=== PATIENT | male | born 1985 | race Caucasian/White ===

== ENCOUNTER 2020-11-16 09:20 | Outpatient (REF) | payer OTHER, SELFPAY | END 2020-11-16 09:21 | disposition home or self-care (01) | LOC: HO.LAB 09:20 | PROVIDERS: Visit Provider Internal Medicine | DX: Z20.822 Contact with and (suspected) exposure to COVID-19 (principal) | CPT/HCPCS: 36415; C9803; U0003; U0005 ==

== ENCOUNTER 2020-12-05 14:14 | Outpatient (REF) | payer OTHER, SELFPAY | END 2020-12-05 14:15 | disposition home or self-care (01) | LOC: HO.LAB 14:14 | PROVIDERS: Visit Provider Internal Medicine | DX: Z20.822 Contact with and (suspected) exposure to COVID-19 (principal) | CPT/HCPCS: 36415; C9803; U0003; U0005 ==

== ENCOUNTER 2023-11-22 08:36 | Outpatient (REF) | payer MEDICAID, SELFPAY ==
[2023-11-22 11:42] LABS: Hematocrit 47.8 % (42.0-52.0); Hemoglobin 16.3 g/dl (14.0-18.0); Mean Corpuscular HGB Conc 34.1 g/dl (31.0-36.0); Mean Corpuscular Hemoglobin 29.9 pg (27.0-33.0); Mean Corpuscular Volume 87.7 fL (80.0-98.0); Mean Platelet Volume 12.2 fL (9.4-12.4); Platelet Count 233 X10*3/uL (160-400); Red Blood Count 5.45 X10*6/uL (4.60-5.80); Red Cell Distribution Width 12.9 % (11.0-16.0); White Blood Count 6.9 X10*3/uL (4.8-10.8)
[2023-11-22 12:02] LABS: Alanine Aminotransferase 44 U/L (0-40); Albumin Level 4.4 g/dL (3.5-5.0); Alkaline Phosphatase 134 U/L (39-117); Anion Gap 12 (12-20); Aspartate Amino Transferase 20 U/L (5-37); Bilirubin Total 0.6 mg/dL (0.0-1.0); Blood Urea Nitrogen 13 mg/dL (9-16); Calcium 9.5 mg/dL (8.4-10.2); Carbon Dioxide 28 mmol/L (22-29); Chloride 102 mmol/L (96-108); Estimated Glomerular Filt Rate > 60; Glucose Random 329 mg/dL (60-115); Potassium 4.3 mmol/L (3.3-5.1); Sodium 138 mmol/L (135-145); Total Protein 7.8 g/dL (6.5-8.0)
[2023-11-22 12:11] LABS: HBsAGNum1 0.46 S/CO (0.00-0.99); HIV AB/AG Nonreactive (Nonreactive); HIV Num 1 0.05 S/CO (0.00-0.99); Hepatitis B Surface Antigen Negative (Negative); ~HepC Num1 0.11 S/CO (0.00-0.79); ~Hepatitis C Antibody Nonreactive (Nonreactive)
== END 2023-11-22 08:37 | disposition home or self-care (01) ==
LOC: HO.HHCL 08:36
PROVIDERS: Visit Provider Student in an Organized Health Care Education/Training Program
DX: E11.9 Type 2 diabetes mellitus without complications (principal)
CPT/HCPCS: 36415; 80053; 85027; 86803; 87340; 87389

== ENCOUNTER 2024-01-20 12:45 | Outpatient (REF) | payer OTHER, SELFPAY ==
[2024-01-20 17:11] LABS: Cholesterol 129 mg/dL (<200); HDL Cholesterol 29 mg/dL (>40); LDL Cholesterol Calculated 78 mg/dL (<100); Triglycerides 113 mg/dL (<150)
[2024-01-20 17:35] LABS: Creatinine Urine 162.78 mg/dL
== END 2024-01-20 12:46 | disposition home or self-care (01) ==
LOC: HO.HHCL 12:45
PROVIDERS: Visit Provider Nurse Practitioner Family
DX: E11.9 Type 2 diabetes mellitus without complications (principal)
CPT/HCPCS: 36415; 80061; 82043; 82570

== ENCOUNTER 2025-05-28 14:38 | Emergency (ER) | payer MEDICAID, SELFPAY ==
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
[2025-05-28 14:42] VITALS: BP 144/67; PULSE 110; RESP 20; TEMP 36.8; O2SAT 95; BMI 29.7
[2025-05-28 15:14] LABS: MANUAL DIFF FLAG NO
[2025-05-28 15:16] LABS: Hematocrit 41.3 % (42.0-52.0); Hemoglobin 14.8 g/dl (14.0-18.0); Imm Gran Abs Auto 0.05 X10*3/uL (0.00-0.03); Imm Gran Pct Auto 0.4 % (0.0-0.4); Lymphocytes Absolute Auto 1.5 X10*3/uL (1.2-4.9); Mean Corpuscular HGB Conc 35.8 g/dl (31.0-36.0); Mean Corpuscular Hemoglobin 30.5 pg (27.0-33.0); Mean Corpuscular Volume 85.0 fL (80.0-98.0); NRBC Abs Auto 0.000 X10*3/uL (0.0-0.012); NRBC Pct Auto 0.0 /100WBC (0.0-0.2); Platelet Count 203 X10*3/uL (160-400); Red Blood Count 4.86 X10*6/uL (4.60-5.80); White Blood Count 11.8 X10*3/uL (4.8-10.8)
--- OUTSIDE RECORDS SUMMARY | 2025-05-28 15:29 | XMS_ITS | Encounter Summary ---
Author Organization [employer] Address [address] [facility] [address] [place] [address] Care Team Providers Care Assistant Manager Retail Name Role Phone Jennifer Ugalde [employer] Primary Care Provider [phone] Leena Donis PharmD Unavailable [phone] Reason for Visit * Reason Onset Date Comments Med Refill 11/25/2024 Encounter Details Date Type Department Care Team ([facility] st Contact Info) Description 11/25/2024 Refill [facility] [address] [place] [address] Jennifer Ugalde NP [address] [place] [address] Type 2 diabetes mellitus without complication, without long-term current use of insulin ([facility]); Type 2 diabetes mellitus with hyperglycemia, without long-term current use of insulin ([facility]) Social History Tobacco Use Types Packs/Day Years Used Date Smoking Tobacco: Never Passive Smoke Exposure: Never Smokeless Tobacco: Never Comments:Smokes vapes Alcohol Use Standard Drinks/Week Comments Never 0 (1 standard drink = 0.6 oz pur e alcohol) Alcohol Answer Date Recorded Frequency of Alcohol Consumption Not on file 05/04/2024 Average Number of Drinks Not on file 024 Frequency of Binge Drinking Not on file 04/23 Score 0 05/04/2024 Depression Answer Date Recorded Patient Health Questionnaire-9 Score 14 09/07/2024 Patient Health Questionnaire-9 Score 14 09/07/2024 Last PHQ-9: Questionnaire Data Not on file 1 11/08/2023 Housing Stability Answer Date Recorded What is your housing situation today? I have housing today, but I am worried about losing housing in the future 09/18/[address] you li ve. Do you have problems with any of the following? None of the above 09/18/2024 Food Insecurity Answer Date Recorded Within the past 12 months, y ou worried that your food would run out before you got money to buy more: Never True 09/18/2024 Within the past 12 months,th e food you bought just didn't last and you didn't have enough money to get more: Never True Transportation Answer Date Recorded In the past 12 months, has l ack of transportation kept you from medical appts, meetings, work or from getting things needed for daily living? Yes, it has kept me from medical appointments or getting medications. 09/18/2024 Utilities Answer Date Recorded In the past 12 months, has t he electric, gas, oil or water company threatened to shut off services in your home? No 11/13/2023 Depression Answer Date Recorded Patient Health Questionnaire-2 Score 4 09/07/2024 Internet Access Answer Date Recorded Internet Access Q1 Yes 09/18/2024 Internet Access Q2 Not on file 09/18/2024 Sex and Gender Information Value Date Recorded Sex Assigned at Male 07/23/2022 10:29 AM EDT Legal Sex Male 10:29 AM EDT Gender Identity Male 10/11/2023 10:00 AM EST Sexual Orientation Straight 10/11/2023 10 :00 AM EST documented as of this encounter Plan of Treatment Upcoming Encounters Date Type Department Care Team (Late st Contact Info) Description 05/31/2025 2:30 PM EDT Medication Management [facility] [address] [place] [address] Leena Donis, PharmD [address] [place] [address] documented as of this encounter Visit Diagnoses Diagnosis Type 2 diabetes mellitus without complication, without long-term current use of insulin (CMS/HCC) Type 2 diabetes mellitus with hyperglycemia, without long-term current use of insulin (CMS/HCC) documented in this encounter Additional Health Concerns Assessment Noted Time PHQ-9 Depression Total Score: 14 024 4:51 PM EST documented as of this encounter Care Teams Assistant Manager Retail Relationship Specialty Start Date End Date Jennifer Ugalde NP [address] [place] [address] PCP - General Family Medicine 11/25/23 Leena Donis PharmD [address] [place] [address] Pharmacist Internal Medicine 11/17/24 Lisa Davila Secondary TeacherTiming Adjuster 12/31/24 documented as of this encounter
--- OUTSIDE RECORDS SUMMARY | 2025-05-28 15:29 | XMS_ITS | Encounter Summary ---
Author Organization [employer] Address [address] [facility] 7t [place] [address] Care Team Providers Care Leveler Helper Name Role Phone Jennifer Ugalde CATHETERIZATION LABORATORY TECHNICIAN Primary Care Provider [phone] Leena Donis PharmD Unavailable [phone] Reason for Visit * Reason Onset Date Comments Med Refill 12/23/2024 Encounter Details Date Type Department Care Team ([facility] st Contact Info) Description 12/23/2024 Refill [facility] [address] [place] [address] Jennifer Ugalde NP [address] [place] [address] Controlled type 2 diabetes mellitus with hyperglycemia, with long-term current use of insulin ([facility]) Social History Tobacco Use Types Packs/Day Years [...] Description 05/31/2025 2:30 PM EDT Medication Management [facility] [address] [place] [address] Leena Donis, ErikD [address] [place] [address] documented as of this encounter Visit Diagnoses Diagnosis Controlled type 2 diabetes mellitus with hyperglycemia, with long-term current use of insulin ([facility]) documented in this encounter Additional Health Concerns Assessment Noted Time PHQ-9 Depression Total Score: 14 024 4:51 PM EST documented as of this encounter Care Teams Leveler Helper Relationship Specialty Start Date End Date Jennifer Ugalde NP [address] [place] [address] PCP - General Family Medicine 3/4/24 Leena Donis, Johnson [address] [place] [phone] Pharmacist Internal Medicine 11/17/24 Lisa Davila Professor Of GeographyForepart Laster 12/31/24 documented as of this encounter
--- OUTSIDE RECORDS SUMMARY | 2025-05-28 15:29 | XMS_ITS | Encounter Summary ---
Author Organization [employer] Address [address] [facility] 7t [place] [address] Care Team Providers Care Tip Banding Machine Operator Name Role Phone Jennifer Ugalde PHARMACY CARE COORDINATOR Primary Care Provider [phone] Leena Donis PharmD Unavailable [phone] Reason for Visit * Reason Onset Date Comments Med Refill 12/22/2024 Encounter Details Date Type Department Care Team ([facility] st Contact Info) Description 12/22/2024 Refill [facility] [address] [place] [address] Jennifer Ugalde NP [address] [place] [address] Type 2 diabetes mellitus with hyperglycemia, without long-term current use of insulin ([facility]) Social History Tobacco Use Types Packs/Day Years [...] Description 05/31/2025 2:30 PM EDT Medication Management [facility] [address] [place] [address] Leena Donis PharmD [address] [place] [address] documented as of this encounter Visit Diagnoses Diagnosis Type 2 diabetes mellitus with hyperglycemia, without long-term current use of insulin ([facility]) documented in this encounter Additional Health Concerns Assessment Noted Time PHQ-9 Depression Total Score: 14 024 4:51 PM EST documented as of this encounter Care Teams Tip Banding Machine Operator Relationship Specialty Start Date End Date Jennifer Ugalde NP [address] [place] [address] PCP - General Family Medicine 11/25/23 Leena Donis, ErikD [address] [place] [phone] Pharmacist Internal Medicine 11/17/24 Lisa Davila Forming Tube SelectorIsolation Washer 12/31/24 documented as of this encounter
--- OUTSIDE RECORDS SUMMARY | 2025-05-28 15:29 | XMS_ITS | Encounter Summary ---
Author Organization [employer] Address [address] [facility] [address]t [place] [address] Care Team Providers Care Solution Spec Name Role Phone Jennifer Ugalde HEAD BAKER Primary Care Provider [phone] Leena Donis PharmD Unavailable [phone] Reason for Visit * Reason Onset Date Comments Med Refill 01/19/2025 Encounter Details Date Type Department Care Team ([facility] st Contact Info) Description 01/19/2025 Refill [facility] [address] [place] [address] Jennifer Ugalde NP [address] [place] [address] Controlled type 2 diabetes mellitus with hyperglycemia, with long-term current use of insulin ([facility]) Social History Tobacco Use Types Packs/Day Years [...] Description 05/31/2025 2:30 PM EDT Medication Management [facility] [address] [place] [address] Leena Donis, ErikD [address] [place] [address] documented as of this encounter Visit Diagnoses Diagnosis Controlled type 2 diabetes mellitus with hyperglycemia, with long-term current use of insulin ([facility]) documented in this encounter Additional Health Concerns Assessment Noted Time PHQ-9 Depression Total Score: 14 024 4:51 PM EST documented as of this encounter Care Teams Solution Spec Relationship Specialty Start Date End Date Jennifer Ugalde NP [address] [place] [address] PCP - General Family Medicine 3/4/24 Leena Donis, Johnson [address] [place] [phone] Pharmacist Internal Medicine 11/17/24 Lisa Davila Volunteer AssistantManager Aerospace 12/31/24 documented as of this encounter
--- OUTSIDE RECORDS SUMMARY | 2025-05-28 15:29 | XMS_ITS | Encounter Summary ---
Author Organization [employer] Address [address] [facility] [address] [place] [address] Care Team Providers Care Pocket Machine Operator Name Role Phone Jennifer Ugalde ELECTRICIAN SECOND Primary Care Provider [phone] Leena Donis PharmD Unavailable [phone] Reason for Visit * Reason Onset Date Comments Med Refill 12/24/2024 Encounter Details Date Type Department Care Team ([facility] st Contact Info) Description 12/24/2024 Refill [facility] [address] [place] [address] Jennifer Ugalde NP [address] [place] [address] Viral upper respiratory tract infection Social History Tobacco Use Types Packs/Day Years [...] Description 05/31/2025 2:30 PM EDT Medication Management [facility] [address] [place] [address] Leena Donis PharmD [address] [place] [address] documented as of this encounter Visit Diagnoses Diagnosis Viral upper respiratory tract infection Acute upper respiratory infections of unspecified site documented in this encounter Additional Health Concerns Assessment Noted Time PHQ-9 Depression Total Score: 14 024 4:51 PM EST documented as of this encounter Care Teams Pocket Machine Operator Relationship Specialty Start Date End Date Jennifer Ugalde NP [address] [place] [address] PCP - General Family Medicine 11/25/23 Leena Donis PharmD [address] [place] [phone] Pharmacist Internal Medicine 11/17/24 Lisa Davila Stack ClerkRn Rehab 12/31/24 documented as of this encounter
--- OUTSIDE RECORDS SUMMARY | 2025-05-28 15:29 | XMS_ITS | Encounter Summary ---
Author Organization [employer] Address [address] [facility] 7t [place] [address] Care Team Providers Care Aviation Support Equipment Repairer Name Role Phone Jennifer Ugalde HEALTH INSURANCE SPECIALIST Primary Care Provider Leena Donis PharmD Unavailable [phone] Reason for Visit * Reason Onset Date Comments Med Refill 03/01/2025 Encounter Details Date Type Department Care Team ([facility] st Contact Info) Description 03/01/2025 Refill [facility] [address] [place] [address] Jennifer Ugalde NP [address] [place] [address] Type 2 diabetes mellitus with hyperglycemia, with long-term current use of insulin ([facility]) Social History Tobacco Use Types [...] Description 05/31/2025 2:30 PM EDT Medication Management [facility] [address] [place] [address] Leena Donis PharmD [address] [place] [address] documented as of this encounter Visit Diagnoses Diagnosis Type 2 diabetes mellitus with hyperglycemia, with long-term current use of insulin ([facility]) documented in this encounter Additional Health Concerns Assessment Noted Time PHQ-9 Depression Total Score: 14 024 4:51 PM EST documented as of this encounter Care Teams Aviation Support Equipment Repairer Relationship Specialty Start Date End Date Jennifer Ugalde NP [address] [place] [address] PCP - General Family Medicine 11/25/23 Leena Donis, ErikD [address] [place] [phone] Pharmacist Internal Medicine 11/17/24 Lisa Davila Footwear Production Machine OperatorHospice Superintendent 12/31/24 documented as of this encounter
--- OUTSIDE RECORDS SUMMARY | 2025-05-28 15:29 | XMS_ITS | Clinical Summary ---
Author Organization [employer] Address [address] [place] [address] 7[address] [place] [address] Care Team Providers Care Big Machine Consultant Name Role Phone AftabJennifer ZORAIDA Primary Care Provider [phone] Leena Donis PharmD Unavailable [phone] Allergies No known active allergies Medications * This document contains information received from the source organization and may not represent a complete record from that organization. albuterol 108 (90 Base) MCG/ACT inhaler Inhale 2 puffs every 6 (six) hours if needed for wheezing. 18 g 4 Active pen needle 31G x 8 mm miscIndications:T ype 2 diabetes mellitus with hyperglycemia, without long-term current use of insulin ([facility]) Use as instructed 100 each 12 4 09/08/20 25 Active glucose blood (FreeStyle Precision Vick Test) test stripIndications: Type 2 diabetes mellitus with hyperglycemia, with long-term current use of insulin ([facility]) Use to test blood sugar up to 3 times daily 100 each 5 10/01/19 26 Active Continuous Glucose Whistle Punk (FreeStyle Audelia 3 [place]) device USE DIRECTED TO TEST BLOOD SUGAR 5 Active triamcinolone (Kenalog) 0.1 % cream APPLY TOPICALLY TWICE DAILY IN THE MORNING AND AT BEDTIME NEEDED FOR UP TO 2 WEEKS. APPLY SPARINGLY TO nasal folds 30 g 5 Active ketoconazole (NIZOral) 2 % cream APPLY TOPICALLY TO THE AFFECTED AREA(S) ONCE DAILY 45 g 5 Active TRUEplus Lancets 33G miscIndications:T ype 2 diabetes mellitus with hyperglycemia ([facility]) USE DIRECTED TO CHECK BLOOD SUGAR THREE TIMES DAILY 100 each 3 5 Active ketoconazole (NIZOral) 2 % shampoo APPLY TOPICALLY 2 TIMES A WEEK 240 mL 1 5 Active albuterol (Ventolin HFA) 108 (90 Base) MCG/ACT inhalerIndication s:Viral upper respiratory tract infection INHALE 2 PUFFS BY MOUTH EVERY 6 HOURS NEEDED FOR WHEEZING OR SHORTNESS OF BREATH 18 g 2 5 Active Continuous Glucose Sensor (FreeStyle Audelia 3 Plus Sensor) miscIndications:T ype 2 diabetes mellitus with hyperglycemia, with long-term current use of insulin ([facility]) 1 each every 15 days. 2 each 11 5 Active insulin degludec (Tresiba FlexTouch) 100 UNIT/ML injectionIndicati ons:Controlled type 2 diabetes mellitus with hyperglycemia, with long-term current use of insulin ([facility]) Inject 36 Units under the skin at bedtime. 22.5 mL 5 5 Active Dulaglutide (Trulicity) 4.5 MG/0.5ML solution auto-injector Inject 4.5 mg under the skin 1 (one) time per week. 2 mL 11 5 Active empagliflozin-met FORMIN ER (Synjardy XR) 12.5-1000 MG 24 hr tablet Take 2 tablets by mouth before evening meal. 60 tablet 11 5 03/08/20 26 Active Active Problems Problem Noted Date Diagnosed Date Controlled type 2 diabetes m odette with hyperglycemia, with long-term current use of insulin 10/23/2024 Assessment & Plan (11/27/2024 12:02 PM EST): Pt is hyperglycemic, taking tresiba nightly, reports taking a break form trulicity, but restarted today at 3 mg No side effects Will not increase tresiba today despite hypergylcemia due to recent resumption of glp-1 will send note to nurses to outreach to pt in 2 weeks for glucose trends. Assessment & Plan (10/24/2024 12:23 PM EST): Pt with persistent hyperglycemia, given GI side effects from trulicity, will increase tresiba to 20 units nightly with RN call early next week for prn titration Continue cgm Low back pain at multiple sites 10/23/2024 Dietary counseling 09/22/2024 Assessment & Plan (10/24/2024 12:24 PM EST): Encouraged minimizing processed foods and increasing whole foods particularly vegetables Assessment & Plan (09/22/2024 4:25 PM EST): Encouraged minimizing processed foods and increasing whole foods particularly vegetables Exercise counseling 09/22/2024 Assessment & Plan (10/24/2024 12:23 PM EST): Encouraged daily movement, working up to 30 minutes daily Assessment & Plan (09/22/2024 4:25 PM EST): Encouraged daily movement, working up to 30 minutes daily Sciatica of right side 07/07/2024 Assessment & Plan (07/07/2024 5:46 PM EDT): Continue with physical therapy, Prn muscle relaxor for nocturnal symptoms If no improvement, will image and refer to physiatry Acute right-sided low back pain with right-sided sciatica 05/04/2024 Assessment & Plan (10/24/2024 12:23 PM EST): Pain persistens despite physical therapy, referral to physiatry Assessment & Plan (05/07/2024 5:39 PM EDT): Supportive measures reviewed, pt opts to pursue work up through employer Contusion of right great toe with damage to nail 05/04/2024 ADHD 01/16/2024 Body aches 01/16/2024 BPPV (benign paroxysmal positional vertigo) 12/23 Cholecystitis 01/16/2024 Elevated CK-MB level 01/16/2024 Insomnia 01/16/2024 Chronic elbow pain, left 01/16/2024 Assessment & Plan (07/07/2024 5:44 PM EDT): Referral to ortho Obesity (BMI 30.0-34.9) 01/16/2024 Subclinical hypothyroidism 01/16/2024 Seborrheic dermatitis 11/25/2023 Assessment & Plan (01/21/2024 5:55 PM EDT): Improved, pt would like to continue with current regimen Assessment & Plan (11/26/2023 5:20 PM EST): Impacting nasal folds, trial topical steroid and topical ketoconazole medication indication, side effects and usage reviewed, questions answered. Pt aware to call if side effects occur Discontinue steroid after two weeks. Seborrheic dermatitis of scalp 11/25/2023 Assessment & Plan (11/26/2023 5:20 PM EST): Trial ketoconazole shampoo twice weekly. medication indication, side effects and usage reviewed, questions answered. Pt aware to call if side effects occur Mild anxiety 10/17/2023 Assessment & Plan (10/17/2023 1:21 PM EST): PROGRESS NOTE: ID: is a 37 y.o. Other straight-identified cis-male (pronouns ) with previous documented hx of Depression self reported history of ADHD/ADD services including OP Psychotherapy psychopharmacology who presents for ADHD, Depression, and Anxiety. He lives alone, working at [employer]. Reported has his father here and cousins who he communicate but not often, currently has one brother alive but they don't speak. During [facility]BH Consult presenting with depressed mood, loss of interests/pleasure , changes in sleep difficulty falling asleep and sleeping too much, trouble concentrating, fatigue/loss of energy and restless/keyed up/On edge, easily fatigued, difficulty concentrating/Mind going blank , sleep disturbance difficulty falling asleep and sleeping too much, and fearfulness; for a period of 6-12 mo, for all symptoms in the context of lacking of social support, seeking someone to help him learn skills to manage his symptoms. PLAN: New/Additional Services needed Off-site services for Behavioral Health Integration Plan External OP therapy referral Patient Self Plan Patient to utilize skills provided in intervention and Patient to reach out to [facility] team as needed Asthma 10/13/2023 Assessment & Plan (10/13/2023 9:36 AM EST): Seems from description of symptoms pt present initially w viral syndrome possible complicated w bacterial infection and asthma exacerbation COVID and flu neg -amoxicillin x 7 days BID -refilled albuterol -guaifenesin BID -alarm signs and symptoms discussed -to do today chem,CBC,HIV and Hep B and C until can start care w new PCP -request new PCP apt today DM (diabetes mellitus) 10/13/2023 Assessment & Plan (09/22/2024 4:25 PM EST): Pt is taking and tolerating insulin Sugars remain elevated Increase tresiba to 13 units nightly Follow up in 2 weeks Assessment & Plan (09/17/2024 3:39 PM EST): Pt with significant personal stress contributing to lack of compliance with medicaitons, Pt was referred to case management asymptomatic hyperglycemia, urgency of glucose control reviewed Pt referred to cdtm Pt attributes elevated screen to living situation Assessment & Plan (07/07/2024 5:45 PM EDT): Above goal, increase trulicity to 1.5 mg, add glipizide with meals, will outreach this week to check in regarding glucose Referral to pharmacy for med management If no clinical improvement, consider late onset type I and referral to endocrine Assessment & Plan (05/16/2024 1:02 PM EDT): Pt offered nutrition and dne, Pt declines these but is willing to proceed with close folllow up Plans to pick up and delivery driver trulicity today Rtc in 1-2 weeks Once sugars are improved will review statin therapy as well as DEVAN/arb Assessment & Plan (05/07/2024 5:38 PM EDT): Pt was able to acquire medications, tolerating metformin and trulicity, Follow up in 4-6 week s Assessment & Plan (01/21/2024 5:56 PM EDT): Sugars are improving and patient plans to start trulicity, referral to nursing for continued diabetes management, declines DNE and nutrition today Follow up with provider within 3 months sooner prn Bp at goal but consider 2.5 mg of lisinopril for renoprotective properties at next visit Due for dm foot exam, pt denies neuropathy or lesions on feet Assessment & Plan (11/26/2023 5:21 PM EST): Hgb A1c 10.2 , pt does not have hx of pancreatitis, ckd, or thyroid cancer, Gradually increase metformin until at 1000 mg bid monitoring for GI side effects Then add trulicity weekly 0.75 mg medication indication, side effects and usage reviewed, questions answered. Pt aware to call if side effects occur Pt declines diabetes education referral Reviewed DIABETES MELLITUS management including, devan/arb and statin, pt declines devan/arb but willing to trial statin, Ordered Rtc in 1 month sooner prn Assessment & Plan (10/13/2023 9:33 AM EST): Urine dipstick Glu 500,ketone neg, blood trace,proteine 100, nitrates and LE neg Hb1AC 10.2, Gl 255 -resume metformin 500 mg BID-states used to be control on metformin before -will need to start care w new PCP to monitor DM, may need 2nd drug but will resume meds for now Depression 10/13/2023 Assessment & Plan (10/13/2023 9:35 AM EST): Reports to be stable ,denies SI -BH contacted today to call pt to start care -will need to start outpt tx -to see new PCP ideally within next 4 to 6 weeks Encounters Date Type Department Care Team Description 04/20/2025 Travel 04/02/2025 Telephone [facility] [address] [place] [address] Jennifer Ugalde NP Nurse Triage 03/31/2025 Refill [facility] [address] [place], [place] [phone] Jennifer Ugalde NP Type 2 diabetes mellitus with hyperglycemia, with long-term current use of insulin ([facility]) 03/26/2025 Refill [facility] [address] [place] [address] Jennifer Ugalde NP Type 2 diabetes mellitus with hyperglycemia, without long-term current use of insulin ([facility]); Viral upper respiratory tract infection 03/23/2025 Telephone [facility] [address] [place] [address] Martina Lew MA r/s appointment 03/08/2025 Travel 03/07/2025 Refill [facility] [address] [place] [address] Jennifer Ugalde NP Type 2 diabetes mellitus with hyperglycemia, with long-term current use of insulin ([facility]) 03/04/2025 Refill [facility] [address] [place], [place] [phone] Jennifer Ugalde NP Type 2 diabetes mellitus with hyperglycemia, with long-term current use of insulin ([facility]) 03/01/2025 Refill [facility] [address] [place], [place] [phone] Jennifer Ugalde NP Type 2 diabetes mellitus with hyperglycemia, with long-term current use of insulin ([facility]) from Last 3 Months Immunizations Immunization Administration Dates Next Due HepB-CpG 11/17/2024,10/15/2024 Influenza injectable quadrivalent preservative f ree 11/30/2016 Influenza, IIV3, injectable 11/04/2020, 7 Influenza, seasonal, injectable, preservative fr ee 10/01/2024 Pfizer Covid-19 Vaccine 12+ 10/01/2024 Pneumococcal Conjugate PCV 20 10/01/2024 Tdap 10/15/2024 Social History Tobacco Use Types Packs/Day Years Used Date Smoking Tobacco: Never Passive Smoke Exposure: Never Smokeless Tobacco: Never Tobacco Cessation:Counseling Given: Not Answered Comments:Smokes vapes Alcohol Use Standard Drinks/Week Comments [...] Orientation Straight 10/11/2023 10 :00 AM EST Last Filed Vital Signs Vital Sign Reading Time Taken Comments Blood Pressure 110/64 03/08/2025 12:55 PM EDT Pulse 77 03/08/2025 12:55 PM EDT Temperature 36.4 C (97.6 F) 11/27/2024 11:48 AM EST Respiratory Rate 20 11/27/2024 11:48 AM EST Oxygen Saturation 98% 11/27/2024 11:48 AM EST Inhaled Oxygen Concentration - - Weight 112 kg (246 lb 6.4 oz) 11/27/2024 11:48 A M EST Height 188 cm (6' 2 ) 11/27/2024 11:48 AM EST Body Mass Index 31.64 11/27/2024 11:48 AM EST Plan of Treatment Upcoming Encounters Date Type Department Care Team (Late st Contact Info) Description 05/31/2025 2:30 PM EDT Medication Management [facility] [address] [place] [address] Leena Donis, PharmD [address] [place] [address] Health Maintenance Due Date Last Done Comments Diabetes: Foot Exam 12/02/1995 Alcohol/Substance Use Screening 1997 Family Planning (PISQ) 2000 HPV Vaccines (1 - Male 3-dose series) 2000 Diabetes: Urine Protein Screening 01/19/2025 01/20/2024 Lipid Panel 01/19/2025 01/20/2024 Diabetes: Hemoglobin A1C 02/27/2025 025, 09/07/2024, 07/07/2024, Additional history exists Depression Monitoring 03/08/2025 09/07/2024, 024 Influenza Vaccine (#1) 2025 , 11/04/2020, 11/30/2016, Additional history exists SDOH Screening 09/18/2025 09/18/2024 Tobacco Screening 11/27/2025 11/27/2024 Disability Screening 12/10/2025 12/10/2024 Eye Exam 07/02/2026 07/02/2024, 06/23, 07/02/2024, Additional history exists DTaP/Tdap/Td Vaccines (2 - Td or Tdap) 10/15/2034 10/15/2024 Zoster Vaccines (1 of 2) 12/02/2035 RSV Patients and Patients Aged 60 years or older (1 - 1-dose 75+ series) 2060 HIV Screening Completed 11/22/2023 Hepatitis C Screening Completed 11/22/2023 COVID-19 Vaccine Completed 10/01/2024, 12/2021, 01/24/2021, Additional history exists Pneumococcal Vaccine: Pediatrics (0 to 5 Years) and At-Risk Patients (6 to 49) Years Completed 10/01/2024 Hepatitis B Vaccines Completed 11/17/2024, 10/15/19 HIB Vaccines Aged Out No longer eligi ble based on patient's age to complete this topic Hepatitis A Vaccines Aged Out No long er eligible based on patient's age to complete this topic IPV Vaccines Aged Out No longer eligi ble based on patient's age to complete this topic Meningococcal B Vaccine Aged Out No l onger eligible based on patient's age to complete this topic Meningococcal Vaccine Aged Out No holly cheng eligible based on patient's age to complete this topic RSV under 20 months Aged Out No longe r eligible based on patient's age to complete this topic Rotavirus Vaccines Aged Out No longer eligible based on patient's age to complete this topic Procedures Procedure Name Priority Date/Time Associated Diagnosis Comments POCT GLYCATED HEMOGLOBIN, TOTAL Routine 11/27/2024 11:50 AM EST Type 2 diabetes mellitus with hyperglycemia, with long-term current use of insulin (CMS/HCC) ALBUMIN, RANDOM URINE W/CREATININE Routine 01/20/2024 12:48 PM EDT Type 2 diabetes mellitus without complication, without long-term current use of insulin (CMS/HCC) LIPID PANEL, STANDARD Routine 01/20/2024 12:48 PM EDT Type 2 diabetes mellitus without complication, without long-term current use of insulin (CMS/HCC) HEPATITIS C AB W/REFL TO HCV RNA, QN, PCR Routine 11/22/2023 8:40 AM EST Type 2 diabetes mellitus without complication, without long-term current use of insulin (CMS/HCC) HIV 1/2 ANTIGEN/ANTIBODY, FOURTH GENERATION W/RFL Routine 11/22/2023 8:40 AM EST Type 2 diabetes mellitus without complication, without long-term current use of insulin (CMS/HCC) from Last 3 Months or Most Recently Relevant to Health Maintenance Results * (ABNORMAL) POCT HGB A1C (11/27/2024 11:50 AM EST) Hemoglobin A1C 11.5(A) 4.0 - 6.0 % QC Media Lot # [id number] Lot# Expiration Date 42 Blood 11/27/2024 11:5 0 AM EST us Jennifer Ugalde FIELD CONTROL INSPECTOR POINT OF CARE TEST ENTER/EDIT OR DERABLES Final Result * (ABNORMAL) Albumin, Random Urine W/Creatinine (01/20/2024 12:48 PM EDT) Creatinine, Urine 162.78 mg/dL [facility] Microalbumin Urine 132.0 mg/L H [facility] Microalbum Creatinine Ratio Ur 81.0(H) <30 ug/mg cr [facility] Comment:Albumin/Creatinine R atio Reference Ranges: Normal: < 30 ug/mg creatinine Microalbuminuria: 30 - 300 ug/mg creatinineClinical Albuminuria: > 300 ug/mg creatinine Urine (Urine, Random) 01/20/2024 12:48 PM EDT 01/20/2024 4:16 PM EDT us Jennifer Ugalde FIELD CONTROL INSPECTOR LAB URINE ORDERABLES Final Resul t [facility] [address] [place] [phone] * (ABNORMAL) Lipid Panel, Standard (01/20/2024 12:48 PM EDT) Triglycerides 113 <150 mg/dL [facility] Comment:Desirable Triglyceri de: less than 150 mg/dLBorderline High Triglyceride 150-199 mg/dLHigh Triglyceride: 200-499 mg/dLVery High Triglyceride: greater than or equal to 5OO mg/dL Cholesterol 129 <200 mg/dL [facility] Comment:Desirable Cholestero l: less than 200 mg/dLBorderline High Cholesterol: 200-239 mg/dLHigh Cholesterol: greater than 239 mg/dL LDL Cholesterol Calculated 78 <100 mg/dL [facility] Comment:Desirable LDL: less than 100 mg/dLNear Optimal/Above Optimal LDL: 110- 129 mg/dLBorderline High LDL: 130-159 mg/dLHigh LDL: 160-189 mg/dLVery High LDL: greater than or equal to 190 mg/dL HDL Cholesterol 29(L) >40 mg/dL [facility] Comment:Desirable HDL: great er than 40 mg/dL Note: This HDL assay may give artificially low results in patients with liver disease. Blood Venous blood specimen / Unknown 01/20/2024 12:48 PM EDT 01/20/2024 4:08 PM EDT us Jennifer Ugalde FIELD CONTROL INSPECTOR LAB BLOOD ORDERABLES Final Resul t Performing Organization Address [facility] Co de Phone Number [facility] [address] [place] [phone] * Hepatitis C Antibody with Reflex to HCV, RNA, Quantitative, Real-Time PCR (11/22/2023 8:40 AM EST) Hepatitis C Antibody Nonreactive Nonreactive [facility] Comment:Antibodies to HCV no t detected; does not exclude early acuteHCV infection. Blood Venous blood specimen / Unknown 11/22/2023 8:40 AM EST 11/22/2023 11:18 AM EST us Marley Mayes MD LAB BLOOD ORDERAB LES Final Result Performing Organization Address [facility] Co de Phone Number [facility] [address] [place] [phone] * HIV-1/2 Antigen and Antibodies, Fourth Generation, with Reflexes (11/22/2023 8:40 AM EST) HIV AB/AG Nonreactive Nonreactive [facility] Comment:HIV-1 p24 Ag and/or HIV-1/HIV-2 Ab not detected.A test result that is nonreactive does not exclude thepossibility of exposure to or infection with HIV-1 and/orHIV-2. Nonreactive results in this assay for individualswith prior exposure to HIV-1 and/or HIV-2 may be due toantigen and antibody levels that are below the limit ofdetection of this assay.The [employer] HIV Ag/Ab Combo assay result andsupplemental assay results should be interpreted inconjunction with the patient's clinical presentation,history and other laboratory results. If the results areinconsistent with clinical evidence, additional testing issuggested to confirm the result. Blood Venous blood specimen / Unknown 11/22/2023 8:40 AM EST 11/22/2023 11:18 AM EST us Marley Mayes MD LAB BLOOD ORDERAB LES Final Result [facility] [address] [place] [phone] from Last 3 Months or Most Recently Relevant to Health Maintenance Insurance [facility] STAND[facility] Care Teams Big Machine Consultant Relationship Specialty Start Date End Date Jennifer Ugalde NP [address] [place] [address] PCP - General Family Medicine 11/25/23 Leena Donis, ErikD [address] [place] [phone] Pharmacist Internal Medicine 11/17/24 Lisa Davila Research Program InternHatch Supervisor 12/31/24
--- OUTSIDE RECORDS SUMMARY | 2025-05-28 15:29 | XMS_ITS | Encounter Summary ---
Author Organization [employer] Address [address] [facility] [address] [place] [address] Care Team Providers Care Incident Analyst Name Role Phone Jennifer Ugalde PLATE COLORER Primary Care Provider [phone] Leena Donis PharmD Unavailable [phone] Reason for Visit * Reason Onset Date Comments Med Refill 01/17/2025 Encounter Details Date Type Department Care Team ([facility] st Contact Info) Description 01/17/2025 Refill [facility] [address] [place] [address] Jennifer Ugalde NP [address] [place] [address] Type 2 diabetes mellitus with hyperglycemia, without long-term current use of insulin ([facility]) Social History Tobacco Use Types Packs/Day [...] Description 05/31/2025 2:30 PM EDT Medication Management [facility] [address] [place] [address] Leena Donis PharmD [address] [place] [phone] documented as of this encounter Visit Diagnoses Diagnosis Type 2 diabetes mellitus with hyperglycemia, without long-term current use of insulin ([facility]) documented in this encounter Additional Health Concerns Assessment Noted Time PHQ-9 Depression Total Score: 14 024 4:51 PM EST documented as of this encounter Care Teams Incident Analyst Relationship Specialty Start Date End Date Jennifer Ugalde NP [address] [place] [address] PCP - General Family Medicine 11/25/23 Leena Donis, ErikD [address] [place] [phone] Pharmacist Internal Medicine 11/17/24 Lisa Davila Application Security SpecialistCircular Tank Cooper 12/31/24 documented as of this encounter
--- OUTSIDE RECORDS SUMMARY | 2025-05-28 15:29 | XMS_ITS | Encounter Summary ---
Author Organization [employer] Address [address] [place] [address] 7 [place] [address] Care Team Providers Care Assistant Distribution Manager Name Role Phone Jennifer Ugalde INNOVATION ANALYST Primary Care Provider [phone] Leena Donis PharmD Unavailable [phone] Reason for Visit * Reason Onset Date Comments New Patient 07/16/2023 Encounter Details Date Type Department Care Team ([facility] Contact Info) Description 07/16/2023 Telephone [facility] [address] [place] [address] Juan Scruggs MD [address] [place] [address] New Patient Social History Tobacco Use Types Packs/Day Years Used Date Smoking Tobacco: Never Assessed Sex and Gender Information Value Date Recorded Sex Assigned at Male 07/23/2022 10:29 AM EDT Legal Sex Male 10:29 AM EDT Gender Identity Male 10/11/2023 10:00 AM EST Sexual Orientation Straight 10/11/2023 10 :00 AM EST documented as of this encounter Miscellaneous Notes * Telephone Encounter - Emelyn Holt - 07/16/2023 3:42 PM EDT Pt has been transfer over to wait list for INNOVATION ANALYST. EFFECTIVE SINCE 07/16/2023 documented in this encounter Plan of Treatment Upcoming Encounters Date Type Department Care Team ([facility] Contact Info) Description 05/31/2025 2:30 PM EDT Medication Management [facility] [address] [place] [address] Leena Donis PharmD [address] [place] [address] documented as of this encounter Visit Diagnoses Not on filedocumented in this encounter Care Teams Assistant Distribution Manager Relationship Specialty Start Date End Date Jennifer Ugalde NP [address] [place] [address] PCP - General Family Medicine 11/25/23 Leena Donis, ErikD [address] [place] [address] Pharmacist Internal Medicine 11/17/24 Lisa Davila Molder SetterNavigation Teacher 12/31/24 documented as of this encounter
--- OUTSIDE RECORDS SUMMARY | 2025-05-28 15:29 | XMS_ITS | Encounter Summary ---
Author Organization [email or web address] Address [address] [facility] 7t [place] [address] Care Team Providers Care Tax Agent Name Role Phone Jennifer Ugalde STONEMASON HELPER Primary Care Provider [phone] Leena Donis PharmD Unavailable [phone] Reason for Visit * Reason Onset Date Comments Med Refill 03/26/2025 Encounter Details Date Type Department Care Team ([facility] st Contact Info) Description 03/26/2025 Refill [facility] [address] [place] [address] Jennifer Ugalde NP 230 [place] [address] Type 2 diabetes mellitus with hyperglycemia, without long-term current use of insulin ([facility]); Viral upper respiratory tract infection Social History [...] Description 05/31/2025 2:30 PM EDT Medication Management [facility] [address] [place] [address] Leena Donis PharmD 230 [place] [address] documented as of this encounter Visit Diagnoses Diagnosis Type 2 diabetes mellitus with hyperglycemia, without long-term current use of insulin ([facility]) Viral upper respiratory tract infection Acute upper respiratory infections of unspecified site documented in this encounter Additional Health Concerns Assessment Noted Time PHQ-9 Depression Total Score: 14 024 4:51 PM EST documented as of this encounter Care Teams Tax Agent Relationship Specialty Start Date End Date Jennifer Ugalde NP [address] [place] [address] PCP - General Family Medicine 11/25/23 Leena Donis, Johnson [address] [place] [address] Pharmacist Internal Medicine 11/17/24 Lisa Davila Network ConsultantConcrete Curer 12/31/24 documented as of this encounter
--- OUTSIDE RECORDS SUMMARY | 2025-05-28 15:29 | XMS_ITS | Encounter Summary ---
Author Organization [employer] Address 75 [facility] 7t [place] [address] Care Team Providers Care Php Software Engineer Name Role Phone Jennifer Ugalde MEAT PULLER Primary Care Provider [phone] Leena Donis PharmD Unavailable [phone] Reason for Visit * Reason Onset Date Comments Med Refill 03/31/2025 Encounter Details Date Type Department Care Team ([facility] st Contact Info) Description 03/31/2025 Refill [facility] [address] [place] [address] Jennifer Ugalde NP 230 [place] [address] Type 2 diabetes mellitus with hyperglycemia, with long-term current use of insulin ([facility]) Social History Tobacco Use Types Packs/Day Years [...] Description 05/31/2025 2:30 PM EDT Medication Management [facility] [address] [place] [address] Leena Donis PharmD [address] [place] [address] documented as of this encounter Visit Diagnoses Diagnosis Type 2 diabetes mellitus with hyperglycemia, with long-term current use of insulin ([facility]) documented in this encounter Additional Health Concerns Assessment Noted Time PHQ-9 Depression Total Score: 14 024 4:51 PM EST documented as of this encounter Care Teams Php Software Engineer Relationship Specialty Start Date End Date Jennifer Ugalde NP [address] [place] [address] PCP - General Family Medicine 11/25/23 Leena Donis, ErikD [address] [place] [address] Pharmacist Internal Medicine 11/17/24 Lisa Davila Wood Cut EngraverDisbursement Clerk 12/31/24 documented as of this encounter
--- OUTSIDE RECORDS SUMMARY | 2025-05-28 15:29 | XMS_ITS | Encounter Summary ---
Author Organization [employer] Address [address] [facility] 7t [place] [address] Care Team Providers Care Electric Plater Name Role Phone Jennifer Ugalde PROFESSOR OF EXERCISE SCIENCE Primary Care Provider [phone] Leena Donis PharmD Unavailable [phone] Reason for Visit * Reason Onset Date Comments Med Refill 03/07/2025 Encounter Details Date Type Department Care Team ([facility] st Contact Info) Description 03/07/2025 Refill [facility] [address] [place] [address] Jennifer Ugalde NP [address] [place] [address] Type 2 diabetes mellitus with hyperglycemia, with long-term current use of insulin ([facility]) Social History [...] Description 05/31/2025 2:30 PM EDT Medication Management [facility] [address] [place] [address] Leena Donis PharmD [address] [place] [address] documented as of this encounter Visit Diagnoses Diagnosis Type 2 diabetes mellitus with hyperglycemia, with long-term current use of insulin ([facility]) documented in this encounter Additional Health Concerns Assessment Noted Time PHQ-9 Depression Total Score: 14 024 4:51 PM EST documented as of this encounter Care Teams Electric Plater Relationship Specialty Start Date End Date Jennifer Ugalde NP [address] [place] [address] PCP - General Family Medicine 11/25/23 Leena Donis, ErikD [address] [place] [address] Pharmacist Internal Medicine 11/17/24 Lisa Davila Music InternBusiness Services Director 12/31/24 documented as of this encounter
--- OUTSIDE RECORDS SUMMARY | 2025-05-28 15:29 | XMS_ITS | Encounter Summary ---
Author Organization [employer] Address [address] [facility] 7t [place] [address] Care Team Providers Care Circular Saw Operator Name Role Phone Jennifer Ugalde GEOGRAPHIC INFORMATION SYSTEM SURVEYOR Primary Care Provider [phone] Leena Donis PharmD Unavailable [phone] Reason for Visit * Reason Onset Date Comments Med Refill 03/04/2025 Encounter Details Date Type Department Care Team ([facility] st Contact Info) Description 03/04/2025 Refill [facility] 230 [place] [address] Jennifer Ugalde NP [address] [place] [address] Type 2 diabetes mellitus with hyperglycemia, with long-term current use of insulin ([facility]) Social History Tobacco Use Types [...] Management [facility] [address] [place] [address] Leena Donis PharmD 230 [place] [address] documented as of this encounter Visit Diagnoses Diagnosis Type 2 diabetes mellitus with hyperglycemia, with long-term current use of insulin ([facility]) documented in this encounter Additional Health Concerns Assessment Noted Time PHQ-9 Depression Total Score: 14 024 4:51 PM EST documented as of this encounter Care Teams Circular Saw Operator Relationship Specialty Start Date End Date Jennifer Ugalde NP [address] [place] [address] PCP - General Family Medicine 11/25/23 Leena Donis, ErikD [address] [place] [address] Pharmacist Internal Medicine 11/17/24 Lisa Davila Hood FitterControl Operator Flow Coat 12/31/24 documented as of this encounter
--- OUTSIDE RECORDS SUMMARY | 2025-05-28 15:29 | XMS_ITS | Patient Health Record ---
Author Organization [facility] Address [address] [place] [address] Care Team Providers Care Vice President Fixed Income Name Role Phone [facility] Primary Care Provider Yuko Epperson Unavailable [phone] [employer] - DO NOT USE, [facility] Unavailable Unavailable Reason For Referral No Information Medications Medication SIG (Take, Route, Fr equency, Duration) Notes Start Date End Date Status albuterol Active sertraline 25 mg 1 tab(s) orally once a day Unknown ProAir HFA 90 mcg/inh 2 puff(s) inhaled 4 times a day for 30 day(s) 04/30/2018 Active Immunizations Vaccine Route Administration Date Status Comme nts Hepatitis A IM Intramuscular 05/21/2018 Administered [facility] 5 8160-826-43 Hepatitis B (20 or more) IM Intramuscular 05/21/2018 Administered [place] [id number] Influenza IM Intramuscular 06/25/2018 Administered [place] 49 [id number] Hepatitis B (20 or more) IM Intramuscular 07/21/2018 Administered [place] [id number] Social History Tobacco Use: Social History Observation Description Date Details (start date - stop date) Current Smoker NA - NA Tobacco Use Assessment MU Question Answer Notes What is your current smoking status? current smo ker How many cigarettes a day do you smoke? 5 or les s Are you interested in quitting? 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 Problem Tobacco user (068457089) Nicotine dependence, cigarettes, uncomplicated (F17.210) Active confirmed Problem Dysthymia (46336887) Dysthymic disorder (F34.1) Active confirmed Problem Affective psychosis (536230720) Unspecified mood [affective] disorder (F39) Active confirmed Problem Tear film insufficiency (56542332) Dry eye syndrome of bilateral lacrimal glands (H04.123) Active confirmed F/U appt 2019 Problem Seasonal allergic rhinitis (910073786) Other seasonal allergic rhinitis (J30.2) Active confirmed Problem Mild intermittent asthma (604686762) Mild intermittent asthma, uncomplicated (J45.20) Active confirmed Problem Blister of toe without infection (83372308) Blister (nonthermal), right foot, initial encounter (S90.821A) Active confirmed Problem Body mass index 25-29 - overweight (141556070) Body mass index (BMI) 26.0-26.9, adult (Z68.26) Active confirmed Encounters Encounter Location Date Provider Diagnosis [facility] [address] [id number] 03/24/2025 Yuko Epperson [facility] [address] [id number] 03/30/2025 Yuko Epperson Plan Of Treatment Pending Test Test Name Order Date EKG 05/21/2018 Medical (General) History Medical History History ICD Code Asthma- Albuterol as needed Smoker depression Surgical History Surgery Date(Month/Year) Tongue surgery a child Hospitalization History Reason Date(Month/Year) No hospitalizations
--- OUTSIDE RECORDS SUMMARY | 2025-05-28 15:30 | XMS_ITS | Encounter Summary ---
Author Organization [employer] Address [address] [facility] 7t [place] [address] Care Team Providers Care Bag Washer Name Role Phone Jennifer Ugalde AUTOMOTIVE PARTS CLERK Primary Care Provider [phone] Leena Donis PharmD Unavailable [phone] Reason for Visit * Reason Onset Date Comments Med Refill 09/07/2024 Encounter Details Date Type Department Care Team ([facility] st Contact Info) Description 09/07/2024 Refill [facility]INE [address] [place] [address] Jennifer Ugalde NP [address] [place] [address] Type 2 diabetes mellitus without complication, without long-term current use of insulin ([facility]); Viral upper respiratory tract infection; Sciatica of right side Social History Tobacco Use Types Packs/Day Years [...] is your housing situation today? I have agustín perry 11/13/[address] you li ve. Do you have problems with any of the following? None of the above 11/13/2023 Food Insecurity Answer Date Recorded Within the past 12 months, y ou worried that your food would run out before you got money to buy more: Sometimes True 2023 Within the past 12 months,th e food you bought just didn't last and you didn't have enough money to get more: Sometimes True 11/13/2023 Transportation Answer Date Recorded In the past 12 months, has l ack of transportation kept you from medical appts, meetings, work or from getting things needed for daily living? Yes, it has kept me from non-medical meetings, work, or getting things that I need 11/13/2023 Utilities Answer Date Recorded In the past 12 months, has t he electric, gas, oil or water company threatened to shut off services in your home? No 11/13/2023 Depression Answer Date Recorded Patient Health Questionnaire-2 Score 4 09/07/2024 Sex and Gender Information Value Date Recorded Sex Assigned at Male 07/23/2022 10:29 AM EDT Legal Sex Male 10:29 AM EDT Gender Identity Male 10/11/2023 10:00 AM EST Sexual Orientation Straight 10/11/2023 10 :00 AM EST documented as of this encounter Functional Status * Over the past 2 weeks, how often have you been bothered by any of the following problems? Question Answer Date of Assessment Author Patient Health Questionnaire-2 Score 4 08/23 4:51 PM EST Martina Lew MA * Little interest or pleasure in doing things Answer Date of Assessment Author More than half the days 09/07/2024 4:51 PM EST Martina Wilkes MA * Feeling down, depressed, or hopeless Answer Date of Assessment Author More than half the days 09/07/2024 4:51 PM EST Martina Wilkes MA * Trouble falling or staying asleep, or sleeping too much Answer Date of Assessment Author More than half the days 09/07/2024 4:51 PM EST Martina Wilkes MA * Feeling tired or having little energy Answer Date of Assessment Author More than half the days 09/07/2024 4:51 PM EST Martina Wilkes MA * Poor appetite or overeating Answer Date of Assessment Author More than half the days 09/07/2024 4:51 PM Martina Kapadia MA * Feeling bad about yourself - or that you are a failure or have let yourself or your family down Answer Date of Assessment Author More than half the days 09/07/2024 4:51 PM Martina Kapadia MA * Trouble concentrating on things, such as reading the newspaper or watching television Answer Date of Assessment Author Not at all 09/07/2024 4:51 PM Valerio Nj ra, [place] * Moving or speaking so slowly that other people could have noticed? Or the opposite - being so fidgety or restless that you have been moving around a lot more than usual. Answer Date of Assessment Author More than half the days 09/07/2024 4:51 PM Martina Kapadia MA * Thoughts that you would be better off or hurting yourself in some way Answer Date of Assessment Author Not at all 09/07/2024 4:51 PM Valerio Nj ra, [place] * Patient Health Questionnaire-9 Score Answer Date of Assessment Author 14 09/07/2024 4:51 PM Valerio Nj ra, [place] * How difficult have these problems made it for you to do your work, take care of things at home, or get along with other people? Answer Date of Assessment Author Somewhat difficult 09/07/2024 4:51 PM Martina Nj MA documented as of this encounter Plan of Treatment Upcoming Encounters Date Type Department Care Team (Late st Contact Info) Description 05/31/2025 2:30 PM EDT Medication Management [facility] MEDICINE [address] [place] [address] Leena Donis PharmD [address] [place] [address] documented as of this encounter Visit Diagnoses Diagnosis Type 2 diabetes mellitus without complication, without long-term current use of insulin ([facility]) Viral upper respiratory tract infection Acute upper respiratory infections of unspecified site Sciatica of right side documented in this encounter Additional Health Concerns Assessment Noted Time PHQ-9 Depression Total Score: 14 024 4:51 PM EST documented as of this encounter Care Teams Bag Washer Relationship Specialty Start Date End Date Jennifer Ugalde, ZORAIDA [address] [place] [address] PCP - General Family Medicine 11/25/23 Leena Donis PharmD [address] [place] [address] Pharmacist Internal Medicine 11/17/24 Lisa Davila Local CoordinatorAddiction Medicine Physician 12/31/24 documented as of this encounter
--- OUTSIDE RECORDS SUMMARY | 2025-05-28 15:30 | XMS_ITS | Encounter Summary ---
Author Organization [employer] Address [address] [facility] 7 [place] [address] Care Team Providers Care Map Plotter Name Role Phone SofiaJennifer hillman ZORAIDA Primary Care Provider [phone] Leena Donis PharmD Unavailable [phone] Reason for Visit * Reason Onset Date Comments Med Refill 08/13/2024 Encounter Details Date Type Department Care Team ([facility] st Contact Info) Description 08/13/2024 Refill [facility] [address] [place] [address] Marley Steel MD [address] [place] [address] Social History Tobacco Use Types Packs/Day Years [...] Answer Date Recorded Patient Health Questionnaire-9 Score 6 10/17/2023 Patient Health Questionnaire-9 Score 6 10/17/2023 Last PHQ-9: Questionnaire Data Not on file 0 10/17/2023 Housing Stability Answer Date Recorded What is [...] Answer Date Recorded Patient Health Questionnaire-2 Score 2 10/17/2023 Sex and Gender Information Value Date Recorded Sex Assigned at Male 07/23/2022 10:29 AM EDT Legal Sex Male 10:29 AM EDT Gender Identity Male 10/11/2023 10:00 AM EST Sexual Orientation Straight 10/11/2023 10 :00 AM EST documented as of this encounter Plan of Treatment Upcoming Encounters Date Type Department Care Team (Late st Contact Info) Description 05/31/2025 2:30 PM EDT Medication Management [facility] [address] [place] [address] Leena Donis PharmD [address] [place], [place] documented as of this encounter Visit Diagnoses Not on filedocumented in this encounter Additional Health Concerns Assessment Noted Time PHQ-9 Depression Total Score: 6 10/17/19 24 12:45 PM EST documented as of this encounter Care Teams Map Plotter Relationship Specialty Start Date End Date Jennifer Ugalde NP [address] [place], [place] PCP - General Family Medicine 11/25/23 Leena Donis PharmD [address] [place] [address] Pharmacist Internal Medicine 11/17/24 Lisa Davila Physics Technical OfficerEmployee Wellness/Fitness Coordinator 12/31/24 documented as of this encounter
--- OUTSIDE RECORDS SUMMARY | 2025-05-28 15:30 | XMS_ITS | Encounter Summary ---
Author Organization [employer] Address [address] [facility] 7 [place] [address] Care Team Providers Care Warp Hanger Name Role Phone SofiaJennifer hillman ZORAIDA Primary Care Provider [phone] Leena Donis PharmD Unavailable [phone] Reason for Visit * Reason Onset Date Comments Med Refill 06/25/2024 Encounter Details Date Type Department Care Team ([facility] st Contact Info) Description 06/25/2024 Refill [facility] [address] [place] [address] Marley Steel MD [address] [place] [address] Social History Tobacco Use Types Packs/Day Years [...] Description 05/31/2025 2:30 PM EDT Medication Management [facility] [address] [place] [address] Leena Donis PharmD [address] [place], [place] documented as of this encounter Visit Diagnoses Not on filedocumented in this encounter Additional Health Concerns Assessment Noted Time PHQ-9 Depression Total Score: 6 10/17/19 24 12:45 PM EST documented as of this encounter Care Teams Warp Hanger Relationship Specialty Start Date End Date Jennifer Ugalde NP [address] [place], [place] PCP - General Family Medicine 11/25/23 Leena Donis PharmD [address] [place] [address] Pharmacist Internal Medicine 11/17/24 Lisa Davila Tip InserterOtolaryngologist 12/31/24 documented as of this encounter
--- OUTSIDE RECORDS SUMMARY | 2025-05-28 15:30 | XMS_ITS | Encounter Summary ---
Author Organization [employer] Address [address] [facility] 7 [place] [address] Care Team Providers Care Push Button Switch Assembler Name Role Phone Jennifer Ugalde CONTROL CENTER OPERATOR Primary Care Provider [phone] Leena Donis PharmD Unavailable [phone] Reason for Visit * Reason Onset Date Comments Med Refill 09/29/2024 Encounter Details Date Type Department Care Team ([facility] st Contact Info) Description 09/29/2024 Refill [facility] MED[facility]INE [address] [place] [address] Jennifer Ugalde NP [address] [place] [address] Viral upper respiratory tract infection Social History [...] Description 05/31/2025 2:30 PM EDT Medication Management [facility] [address] [place] [address] Leena Donis PharmD [address] [place] [address] documented as of this encounter Visit Diagnoses Diagnosis Viral upper respiratory tract infection Acute upper respiratory infections of unspecified site documented in this encounter Additional Health Concerns Assessment Noted Time PHQ-9 Depression Total Score: 14 024 4:51 PM EST documented as of this encounter Care Teams Push Button Switch Assembler Relationship Specialty Start Date End Date Jennifer Ugalde NP [address] [place] [address] PCP - General Family Medicine 11/25/23 Leena Donis PharmD [address] [place] [address] Pharmacist Internal Medicine 11/17/24 Lisa Davila Power Plant Operations ManagerHot Dog Vendor 12/31/24 documented as of this encounter
--- OUTSIDE RECORDS SUMMARY | 2025-05-28 15:30 | XMS_ITS | Encounter Summary ---
Author Organization [employer] Address [address] [facility] 7 [place] [address] Care Team Providers Care Equipment Man Name Role Phone SofiaJennifer hillman ZORAIDA Primary Care Provider [phone] Leena Donis PharmD Unavailable [phone] Reason for Visit * Reason Onset Date Comments Med Refill 09/07/2024 Encounter Details Date Type Department Care Team ([facility] st Contact Info) Description 09/07/2024 Refill [facility] [address] [place] [id number] Marley Steel MD [address] [place] [address] Social History Tobacco Use Types Packs/Day Years [...] PM EST Martina Wilkes MA * Feeling bad about yourself - [...] 4:51 PM EST Martina Wilkes MA * Thoughts that you would be [...] Description 05/31/2025 2:30 PM EDT Medication Management [facility] [address] [place] [address] Leena Donis PharmD [address] [place] [address] documented as of this encounter Visit Diagnoses Not on filedocumented in this encounter Additional Health Concerns Assessment Noted Time PHQ-9 Depression Total Score: 14 024 4:51 PM EST documented as of this encounter Care Teams Equipment Man Relationship Specialty Start Date End Date Jennifer Ugalde NP [address] [place] [address] PCP - General Family Medicine 11/25/23 Leena Donis PharmD [address] [place] [phone] Pharmacist Internal Medicine 11/17/24 Lisa Davila Global Sales ManagerSecurity Incident Handler 12/31/24 documented as of this encounter
--- OUTSIDE RECORDS SUMMARY | 2025-05-28 15:30 | XMS_ITS | Encounter Summary ---
Author Organization [employer] Address [address] [facility] 7t [place] [address] Care Team Providers Care Modern Greek Studies Professor Name Role Phone Jennifer Ugalde ZORAIDA Primary Care Provider [phone] Leena Donis PharmD Unavailable [phone] Reason for Visit * Reason Comments Med Refill Encounter Details Date Type Department Care Team ([facility] Contact Info) Description 01/25/2025 Refill [facility] [address] [place], [place] [phone] Hortensia Floyd PharmD [address] [place] [address] Type 2 diabetes mellitus without complication, without long-term current use of insulin ([facility]) Social History Tobacco Use Types Packs/Day [...] Description 05/31/2025 2:30 PM EDT Medication Management [facility] [address] [place] [address] Leena Donis, PharmD [address] [place] [address] documented as of this encounter Visit Diagnoses Diagnosis Type 2 diabetes mellitus without complication, without long-term current use of insulin ([facility]) documented in this encounter Additional Health Concerns Assessment Noted Time PHQ-9 Depression Total Score: 14 024 4:51 PM EST documented as of this encounter Care Teams Modern Greek Studies Professor Relationship Specialty Start Date End Date Jennifer Ugalde NP [address] [place] [address] PCP - General Family Medicine 11/25/23 Leena Donis, PharmD [address] [place] [phone] Pharmacist Internal Medicine 11/17/24 Lisa Davila Filling OperatorBlow Pit Operator 12/31/24 documented as of this encounter
--- OUTSIDE RECORDS SUMMARY | 2025-05-28 15:30 | XMS_ITS | Encounter Summary ---
Author Organization [employer] Address [address] [facility] 7t [place] [address] Care Team Providers Care Cutter Hot Knife Name Role Phone Jennifer Ugalde NP Primary Care Provider Leena Donis PharmD Unavailable [phone] Reason for Visit * Reason Comments Med Refill Encounter Details Date Type Department Care Team ([facility] Contact Info) Description 02/18/2025 Refill [facility] [address] [place], [place] [phone] Jennifer Ugalde NP [address] [place] [address] Type 2 diabetes mellitus without complication, without long-term current use of insulin ([facility]) Social History Tobacco Use Types Packs/Day Years [...] Description 05/31/2025 2:30 PM EDT Medication Management [facility] [address] [place] [address] Leena Donis PharmD [address] [place] [address] documented as of this encounter Visit Diagnoses Diagnosis Type 2 diabetes mellitus without complication, without long-term current use of insulin ([facility]) documented in this encounter Additional Health Concerns Assessment Noted Time PHQ-9 Depression Total Score: 14 024 4:51 PM EST documented as of this encounter Care Teams Cutter Hot Knife Relationship Specialty Start Date End Date Jennifer Ugalde NP [address] [place] [address] PCP - General Family Medicine 11/25/23 Leena Donis ErikD [address] [place] [phone] Pharmacist Internal Medicine 11/17/24 Lisa Davila Research ScholarGeography Professor 12/31/24 documented as of this encounter
--- OUTSIDE RECORDS SUMMARY | 2025-05-28 15:30 | XMS_ITS | Encounter Summary ---
Author Organization [employer] Address [address] [facility] 7t [place] [address] Care Team Providers Care Manager Hydraulic Name Role Phone Jennifer Ugalde BLENDING TECHNICIAN Primary Care Provider [phone] Leena Donis PharmD Unavailable [phone] Reason for Visit * Reason Onset Date Comments Med Refill 09/01/2024 Encounter Details Date Type Department Care Team ([facility] st Contact Info) Description 09/01/2024 Refill [facility] [address] [place] [address] Jennifer Ugalde NP [address] [place] [address] Viral upper respiratory tract infection; Type 2 diabetes mellitus without complication, without long-term current use of insulin ([facility]) Social History Tobacco Use Types Packs/Day [...] Description 05/31/2025 2:30 PM EDT Medication Management [facility] [address] [place] [address] Leena Donis PharmD [address] [place] [address] documented as of this encounter Visit Diagnoses Diagnosis Viral upper respiratory tract infection Acute upper respiratory infections of unspecified site Type 2 diabetes mellitus without complication, without long-term current use of insulin ([facility]) documented in this encounter Additional Health Concerns Assessment Noted Time PHQ-9 Depression Total Score: 6 10/17/19 24 12:45 PM EST documented as of this encounter Care Teams Manager Hydraulic Relationship Specialty Start Date End Date Jennifer Ugalde NP [address] [place] [address] PCP - General Family Medicine 11/25/23 Leena Donis PharmD [address] [place] [address] Pharmacist Internal Medicine 11/17/24 Lisa Davila Band Cutting Machine OperatorMalt House Operator 12/31/24 documented as of this encounter
[2025-05-28 15:39] LABS: Alanine Aminotransferase 48 U/L (0-40); Albumin Level 4.1 g/dL (3.5-5.0); Alkaline Phosphatase 101 U/L (39-117); Anion Gap 13 (12-20); Aspartate Amino Transferase 27 U/L (5-37); Blood Urea Nitrogen 12 mg/dL (9-16); Calcium 8.7 mg/dL (8.4-10.2); Carbon Dioxide 23 mmol/L (22-29); Chloride 103 mmol/L (96-108); Creatinine Clr Calc Pharmacy 110.2; Estimated Glomerular Filt Rate > 60; Potassium 3.5 mmol/L (3.3-5.1); Sodium 135 mmol/L (135-145); Total Protein 7.0 g/dL (6.5-8.0)
[2025-05-28 17:46] VITALS: BP 131/73; PULSE 93; RESP 16; TEMP 36.6; O2SAT 99
[2025-05-28 17:50] LABS: Glucose, Whole Blood 341 mg/dL (60-115)
--- NOTE | 2025-05-28 19:11 | PC.NURSE ---
Pt placed in escalona bed. Resting quietly. No distress. CT head resulted with ABEL. and RN at bedside. MD spoke to accepting physician, MD Rip at [facility] ED. 20gLFA placed. IVAbx started. Pt refused tetanus bc he received it at [facility] yesterday. Pt a/oxMaggy, CLEMENTS equally. DEYSI. Speech seems slurred and difficulty with word finding. Pt recognizes that this abnormal speech for him. Small lac to left scalp. Edges approximated. VSS. Report called to [facility]- [facility] ED.
[2025-05-28 19:25] VITALS: BP 131/73; PULSE 93; RESP 16; TEMP 36.6; O2SAT 99
== END 2025-05-28 19:26 | disposition short-term general hospital (02) ==
PROVIDERS: Registered Nurse Emergency; Emergency Provider Emergency Medicine; PCP Family Medicine
DX: S02.91XA Unspecified fracture of skull, initial encounter for closed fracture (principal); S06.5XAA Traumatic subdural hemorrhage with loss of consciousness status unknown, initial encounter; Y08.89XA Assault by other specified means, initial encounter; Y93.9 Activity, unspecified; Y92.9 Unspecified place or not applicable; Y99.9 Unspecified external cause status
CPT/HCPCS: 36415; 70450; 80053; 82947; 85025; 96365; 99285; J0295

== ENCOUNTER → 2025-05-28 14:49 | Outpatient (BNV) | payer MEDICAID, SELFPAY | PROVIDERS: Emergency Provider Emergency Medicine; PCP Family Medicine; Visit Provider Radiology Diagnostic Radiology | DX: S09.90XA Unspecified injury of head, initial encounter (principal) | CPT/HCPCS: 70450 ==